=== PATIENT | female | born 1950 | race Caucasian/White ===

== ENCOUNTER 2023-07-13 07:00 | Day surgery (SDC) | payer MEDICARE ==
[~2023-07-13] VITALS: Ht 160 cm; Wt 56.3 kg
[2023-07-13 07:27] VITALS: BP 111/62
[2023-07-13] MEDS ORDERED: OMEPRAZOLE20 MG PO (07:28)
[2023-07-13] MEDS ORDERED: PRIMIDONE50 MG PO (07:29)
[2023-07-13] MEDS ORDERED: ESTRADIOL42.5 GM VAGINAL (07:29)
[2023-07-13] MEDS ORDERED: PROPRANOLOL HCL60 MG PO (07:29)
[2023-07-13 10:30] VITALS: BP 134/70
--- NOTE | 2023-07-13 10:41 | NUR ---
07/13/23 1041 Christin Tirado 0977 PT ARRIVED TO PACU ON RA, PT WAKES EASILY AND IS REORIENTED TO PACU. 1018 PT AWAKE AND TALKING TO RN, ALL QUESTIONS ANSWERED. MD AT BEDSIDE TALKING TO PT. 1030 PT SITTING IN HIGH FOWLERS AND SIPPING JUICE AND DENIES CONCERNS. 1040 PT DRESSED HERSELF AND TO BATHROOM. PT SON PULLING CAR UP.
--- NOTE | 2023-07-13 19:15 | OR ---
[facility] [address] [place], [place] [address] Signed DATE OF OPERATION: 07/13/2023 SURGEON: Vonnie Powell MD PREOPERATIVE DIAGNOSIS: Positive Cologuard test January 2023. POSTOPERATIVE DIAGNOSES: 1. Extensive diverticulosis. 2. Palpable pessary in place. No obvious polyp identified. PROCEDURE: Total colonoscopy to cecum with biopsy of rectum. ANESTHESIA: Intravenous sedation; fentanyl 125 mcg and Versed 5 mg. INDICATION: This 72-year-old white woman is a patient Dr. Reyna. She underwent a Cologuard test in January of 2023 which was positive. She has no symptoms of bleeding, diarrhea or constipation and no family history of colon cancer. She is admitted to undergo colonoscopy on the basis of her positive Cologuard test. She understands the risk of bleeding, infection, and perforation as well as failure to identify polyp. Notably, false positive rate for Cologuard is currently 13% to 17% in elderly people. FINDINGS: The prep was good. Complete colonoscopy was undertaken of the cecum. Notably, it was challenging to pass the entire colon related to extensive diverticulosis of the sigmoid and left colon but it was accomplished. There was no polyp identified despite efforts to do so. A palpable mass in the rectum was ultimately determined to be a pessary and affirmed by vaginal exam as well. Biopsy was taken over the prominent area of the rectum, though the mucosa was probably normal. DESCRIPTION OF PROCEDURE: The patient was brought to the surgical endoscopy suite and placed in the lateral decubitus position, given intravenous sedation a point of slurred speech and nystagmus. Digital rectal examination identified a palpable firm mass in the rectum anteriorly oriented. An Olympus video colonoscope was passed in the rectum. Visualization of the mass showed it to have smooth mucosa of the rectum. The scope was passed beyond this ultimately into the sigmoid, which showed numerous diverticula. Scope was ultimately Electronically Signed By: VONNIE POWELL MD 07/13/23 1915 PATIENT NAME: AGGIE LAINEZ OPERATIVE REPORT DATE OF : 46 REPORT #: [id number] PHYSICIAN: VONNIE POWELL MD PCP: JUAREZ REYNA DO REPORT IS CONFIDENTIAL AND NOT TO BE RELEASED WITHOUT AUTHORIZATION [facility] [address] [place], [place] [address] Signed advanced beyond this, so it took a fair amount of time given the deformity of the colon related to diverticulosis. Further advancement of the scope was undertaken ultimately to the cecum. Irrigation was undertaken as needed. The ileocecal valve appeared normal. The cecum was cleared as much as possible, showing no sign of lesion. The scope was then withdrawn and examination throughout showed only diverticulosis extensively noted throughout the transverse and left colon and sigmoid. There was no polyp identified. Further withdrawal to the rectum allowed for better visualization of the previously palpated mass and mucosa over the mass was biopsied. The scope was withdrawn. A digital examination was again undertaken confirming the very firm mass likely to be a pessary device. On that basis, posterior vaginal examination was undertaken confirming an implement and the scope passed as well affirming a plastic implant consistent with a pessary. The scope was removed and the patient was taken to the recovery room in good condition. CONCLUDING DIAGNOSES: 1. Extensive diverticulosis. 2. No polyp identified despite positive Cologuard test. 3. Pessary in situ. PLAN: Recommend repeat colonoscopy or Cologuard test in 5 years, sooner if symptoms should develop. MD GILL Weems/LILLIANL /[id number] cc: Juarez Reyna DO Copies: JUAREZ REYNA DO ~ Electronically Signed By: VONNIE POWELL MD 07/13/23 1915 PATIENT NAME: AGGIE LAINEZ OPERATIVE REPORT DATE OF : 46 REPORT #: [id number] PHYSICIAN: VONNIE POWELL MD PCP: JUAREZ REYNA DO REPORT IS CONFIDENTIAL AND NOT TO BE RELEASED WITHOUT AUTHORIZATION
--- NOTE | 2023-07-21 15:09 | PATH ---
[facility] [address] [place], [place] [address] Signed SPECIMEN(S): A RECTUM BIOPSY SPECIMEN SOURCE: A. RECTUM BIOPSY CLINICAL HISTORY: Colonoscopy. Positive Cologuard, 01/2023 FINAL PATHOLOGIC DIAGNOSIS: Rectum, biopsy: - Mild focal active proctitis. COMMENT: The sections through the rectal biopsy show portions of mildly inflamed rectal mucosa. There is evidence of mucosal regeneration as seen by the presence of branched crypts. Rare neutrophils are present particularly superficially. The changes are very mild in nature and may have been induced by the bowel prep or may be related to the passage of stool over the surface or mucosal prolapse. TWK MICROSCOPIC EXAMINATION: Histologic sections of all submitted blocks are examined by light microscopy. These findings, together with the gross examination, support the pathologic diagnosis. GROSS DESCRIPTION: The specimen, labeled and designated "Prabhu rectum biopsy," is received in formalin and consists of one diego soft tissue fragment, 0.2 cm. Entirely submitted in (A1). JS (under the direct supervision of a pathologist) The Gross Description was prepared using a voice recognition system. The report was reviewed for accuracy; however, sound-alike word errors, addition and/or deletions may occur. If there is any question about this report, please contact Client Services. ADDITIONAL NOTES: Immunohistochemical and/or in situ hybridization studies if performed in this case included appropriate positive controls that reacted as expected. This test was developed and its performance characteristics determined by [facility]. It has not been cleared or PATIENT NAME: SIRAGGIE TREVINO PATHOLOGY DATE OF : 46 REPORT #: [id number] PHYSICIAN: CHRISTEN CHERY PCP: ROBERT REYNA DO REPORT IS CONFIDENTIAL AND NOT TO BE RELEASED WITHOUT AUTHORIZATION [facility] [address] [place], [place] [address] Signed approved by the U.S. Food and Drug Administration. The FDA has determined that such clearance or approval is not necessary. This test is used for clinical purposes. It should not be regarded as investigational or for research. [facility] is certified under the Clinical Laboratory Improvement Amendments of 1988 (CLIA) as qualified to perform high complexity clinical laboratory testing. PERFORMING LABORATORY: Technical component was performed by [facility], [address] [place] [id number] (CLIA# [id number]). Professional interpretation was performed by [facility] - [facility], [facility] [address] [address] (CLIA#:[id number]). Diagnostician: Keagan Gracia MD Pathologist Electronically Signed 07/21/2023 Copies: ~ PATIENT NAME: AGGIE LAINEZ PATHOLOGY DATE OF : 46 REPORT #: [id number] PHYSICIAN: CHRISTEN CHERY PCP: ROBERT REYNA DO REPORT IS CONFIDENTIAL AND NOT TO BE RELEASED WITHOUT AUTHORIZATION
== END 2023-07-13 10:47 | disposition home or self-care (01) ==
LOC: DS 07:00 → OPS 07:00 → DS 10:30 → OPS 10:30 → DS 12:15
PROVIDERS: ATTEND Surgery
PROC: 0DBP8ZX Excision of Rectum, Via Natural or Artificial Opening Endoscopic, Diagnostic (ICD-10-PCS; principal; 2023-07-13 08:15)
DX: K62.89 Other specified diseases of anus and rectum (principal); K57.30 Diverticulosis of large intestine without perforation or abscess without bleeding; R19.5 Other fecal abnormalities; Z96.0 Presence of urogenital implants; G25.0 Essential tremor; K21.00 Gastro-esophageal reflux disease with esophagitis, without bleeding; Z88.0 Allergy status to penicillin; Z91.030 Bee allergy status; Z79.899 Other long term (current) drug therapy
CPT/HCPCS: 88305; 99153; G0500; J2250; J3010; J7121

== ENCOUNTER 2025-03-20 17:28 | Emergency (ER) | payer MEDICARE, OTHER ==
[~2025-03-20] VITALS: Ht 160 cm; Wt 62.0 kg
[~2025-03-20 17:28] MED LIST: ESTRADIOL42.5 GM VAGINAL; OMEPRAZOLE20 MG PO; PRIMIDONE50 MG PO; PROPRANOLOL HCL60 MG PO
[2025-03-20] MEDS ORDERED: HYDROCODON-ACE1 EA10 PO (18:47)
[2025-03-20 19:12] VITALS: BP 122/66
== END 2025-03-20 19:08 | disposition home or self-care (01) ==
LOC: ED 17:28
DX: S82.142A Displaced bicondylar fracture of left tibia, initial encounter for closed fracture (principal); S80.11XA Contusion of right lower leg, initial encounter; Z88.0 Allergy status to penicillin; Z91.030 Bee allergy status; Z79.899 Other long term (current) drug therapy; W19.XXXA Unspecified fall, initial encounter
CPT/HCPCS: 73560; 73590; 73700; 99283

== ENCOUNTER 2025-03-31 09:03 | Day surgery (SDC) | payer MEDICARE, OTHER ==
[~2025-03-31] VITALS: Ht 157.5 cm; Wt 54.9 kg
[~2025-03-31 09:03] MED LIST changes: +CALCIUM500 MG PO; +CEFAZOLIN SODIUM 2 GM/20 ML SYR IV SCH; +HYDROCODON-ACE1 EA10 PO; +IBLOOD GLUCOSE TEST STRIP 1 EA TEST VI PRN; +LACTATED RINGER'S 1,000 ML IV SCH; +LIDOCAINE HCL 1% 5 ML SDV INJ ONE; +MAGNESIUM500 MG PO; +TRANEXAMIC ACID IN NACL,ISO-OS 1,000 MG/100 ML PIGGYBACK IV SCH; +VITAMIN C500 M4 PO; +ZINC50 MG PO
[2025-03-31] MEDS ORDERED: DEXAMETHASONE SOD PHOS 10 MG/ML VIAL ONE (09:30)
[2025-03-31] MEDS ORDERED: POTASSIUM99 M3 PO (09:32)
[2025-03-31] MEDS ORDERED: SODIUM CHLORIDE 0.9% 20 ML IV ONE (09:33)
[2025-03-31] MEDS ORDERED: LIDOCAINE HCL 2% 5 ML SDV ONE ×2 (09:33→10:29)
[2025-03-31] MEDS ORDERED: Ropivacaine HCl 0.5% 30 ML VIAL ONE (09:33)
[2025-03-31 09:45] VITALS: BP 131/66
[2025-03-31] MEDS ORDERED: HYDROCODONE/ACETA 7.5/325 TAB PO PRN (10:15)
[2025-03-31] MEDS ORDERED: fentaNYL citrate 100 MCG/2 ML VIAL ONE (10:29)
[2025-03-31] MEDS ORDERED: METOCLOPRAMIDE HCL 10 MG/2 ML SDV IV PRN (11:15)
[2025-03-31] MEDS ORDERED: IBLOOD GLUCOSE TEST STRIP 1 EA TEST VI PRN (11:15)
[2025-03-31] MEDS ORDERED: NALOXONE HCL 0.4 MG SYR IV PRN (11:15)
[2025-03-31] MEDS ORDERED: HYDROmorphone HCL 1 MG/ML SYR IV PRN (11:15)
[2025-03-31] MEDS ORDERED: fentaNYL citrate 50 MCG/ML SDV IV PRN (11:15)
[2025-03-31] MEDS ORDERED: PHENYLEPHRINE HCL 10 MG/ML VIAL ONE (11:20)
[2025-03-31] MEDS ORDERED: HYDROCODON-ACE1 EA11 PO (11:47)
--- NOTE | 2025-03-31 11:59 | NUR ---
03/31/25 Christina Helms PATIENT FOLLOWS INSTRUCTIONS TO LIFT HER HEAD OFF THE PILLOW. SURGICAL BONNET AND OXYGEN MASK ARE REMOVED. PATIENT DENIES PAIN, SENSATION AND MOVEMENT IN HER LEFT LEG. PATIENT IS ASKING FOR APPLE JUICE. THIS IS GIVEN.
[2025-03-31 12:22] VITALS: BP 127/72
--- NOTE | 2025-03-31 12:41 | NUR ---
1222 PT BACK TO DS FROM PACU ALERT AND AWAKE. DENIES PAIN AND NAUSEA. PT DECLINES ANYTHING TO EAT OR DRINK. DAUGHTER AT BEDSIDE. CALL LIGHT WITHIN REACH. WARM BLANKETS PLACED ON PT.
[2025-03-31 13:36] VITALS: BP 125/65
--- NOTE | 2025-03-31 14:04 | NUR ---
1330 PT HELPED UP TO COMMODE SHE WAS ABLE TO VOID 200ML OF CLEAR YELLOW URINE. PT REPORTS READINESS TO GO HOME, DISCHARGE INSTRUCTIONS GIVEN TO PT AND DAUGHTER BOTH VOICED UNDERSTANDING. PTS DAUGHTER HELPED GET HER DRESSED, ICE PACK REFILLED. PT NOT ABLE TO MOVE OR FEEL HER LT LEG DUE TO NERVE BLOCK. CAP REFILL LESS THAN ONE SECOND IN BOTH FEET.
[2025-03-31] MEDS ORDERED: SEVOFLURANE 250 ML BTL INH ONE (16:00)
--- NOTE | 2025-04-07 08:03 | OR ---
[facility] [address] [facility] [address] [place], [place] [address] Signed DATE OF OPERATION: 03/31/2025 SURGEON: Max Castro MD PREOPERATIVE DIAGNOSIS: Lateral tibial plateau fracture, Schatzker II, left. POSTOPERATIVE DIAGNOSIS: Lateral tibial plateau fracture, Schatzker II, left. PROCEDURE PERFORMED: Open reduction and internal fixation of left lateral tibial plateau. FILLING STATION LABORER: Paula Pugh PA-C. Paula was present and critical for all portions of the procedure. ANESTHESIA: Spinal. BLOOD LOSS: None. TOURNIQUET TIME: 35 minutes. IMPLANTS: Blair proximal tibial plate short with six screws. BRIEF HISTORY: [place] is a 74-year-old female with a tibial plateau fracture. She showed minimal displacement on the ER radiographs, however, she walked into clinic weightbearing on it and radiographs in the clinic showed displacement. Risks and benefits of operative treatment were discussed with her and she elected to proceed. DESCRIPTION OF PROCEDURE: Once consent was obtained, she was taken to the operating room. After adequate anesthesia, she was placed on operating room table. The left leg was placed in well-padded proximal thigh tourniquet and prepped and draped in a standard sterile fashion. Leg was exsanguinated using Esmarch bandage. Tourniquet inflated to 250 mmHg. Electronically Signed By: MAX CASTRO MD 04/07/25 0803 PATIENT NAME: FRANCE LAINEZ OPERATIVE REPORT DATE OF : 46 REPORT #: [id number] PHYSICIAN: MAX CASTRO MD PCP: ROBERT REYNA DO REPORT IS CONFIDENTIAL AND NOT TO BE RELEASED WITHOUT AUTHORIZATION [facility] [address] [place], [place] [address] Signed The lateral tibial plateau was approached through a hockey-stick incision, carried through skin and subcutaneous tissue. The fascia was incised in line with the incision. The fascia was elevated off the proximal tibia to allow visualization into the joint. The joint was irrigated and the anterior fracture line was identified and cracked open a little bit. This allowed us to get a small Caicedo elevator in posteriorly to elevate the posteromedial fragments. Once these were sufficiently elevated, the lateral wall was reapproximated and a 1.6 K-wire was placed across the tibia. The small plate was then selected and placed on the lateral plateau and held in position. Radiograph showed good positioning. The four proximal screws were placed using a combination of locking and nonlocking screws. The oblique screw was then placed followed by the distal screw. Excellent reduction and plate placement, screw lengths were obtained. The joint and wound were then copiously irrigated with normal saline. The fascia was reapproximated closing the arthrotomy using #1 Vicryl. The subcutaneous tissue with 2-0 Stratafix and the skin with sarah. The wound was dressed with an Acticoat-7 dressing, ABDs and an Franky wrap. She tolerated the procedure well. All sponge, needle, and instrument counts were correct. Max Castro MD BA/MODL /[id number] Copies: ~ Electronically Signed By: MAX CASTRO MD 04/07/25 0803 PATIENT NAME: FRANCE LAINEZ OPERATIVE REPORT DATE OF : 46 REPORT #: [id number] PHYSICIAN: MAX CASTRO MD PCP: ROBERT REYNA DO REPORT IS CONFIDENTIAL AND NOT TO BE RELEASED WITHOUT AUTHORIZATION
== END 2025-03-31 13:55 | disposition home or self-care (01) ==
LOC: DS 09:03
PROVIDERS: ATTEND Specialist
PROC: 0QSH04Z Reposition Left Tibia with Internal Fixation Device, Open Approach (ICD-10-PCS; principal; 2025-03-31 11:30)
DX: S82.122A Displaced fracture of lateral condyle of left tibia, initial encounter for closed fracture (principal); W11.XXXA Fall on and from ladder, initial encounter; M19.90 Unspecified osteoarthritis, unspecified site; K21.9 Gastro-esophageal reflux disease without esophagitis; Z88.0 Allergy status to penicillin; Z79.899 Other long term (current) drug therapy; Z90.49 Acquired absence of other specified parts of digestive tract
CPT/HCPCS: 01392; 64445; 64447; 73560; C1713; J0690; J1100; J2003; J2371; J2405; J2704; J2795; J3010; J7121